=== PATIENT | female | born 1960 | race Caucasian/White ===

== ENCOUNTER 2019-11-01 13:00 | Emergency (ER) | payer OTHER ==
[2019-11-01 13:11] VITALS: BP 0/0; BMI 17.1
--- NOTE | 2019-11-01 13:32 | PDOC ---
History of Present Illness - General Chief Complaint: Respiratory Stated Complaint: COVID 19 EXPOSURE Time Seen by Provider: 11/01/19 13:09 History Source: Patient Exam Limitations: No Limitations - History of Present Illness Initial Comments: 59 yo F history spontaneous carotid dissection B/L (treated medically, follows up at [place]), aneurysms, hemithyroidectomy presents with SOB s/p COVID-19 exposure. She states she was directly in contact with someone who tested positive. She has had slight cough and chest and back pain. Was feeling some SOB earlier today, and was concerned. She states she has an appointment to go to the drive-through testing center in [place] on Monday. Past History - Past Medical History Allergies/Adverse Reactions: Allergies Allergy/AdvReac Type Severity Reaction Status Date / Time No Known Allergies Allergy Verified 11/01/19 13:03 Home Medications: Ambulatory Orders Amlodipine Besylate [Norvasc -] 5 mg PO DAILY 11/01/19 Aspirin [Aspirin EC] 81 mg PO DAILY 11/01/19 COPD: No Thyroid Disease: Yes Other medical history: Spontaneous carotid dissection B/L, treated medically - Psycho Social/Smoking Cessation Hx Smoking History: Never smoked Hx Alcohol Use: Yes (WINE WITH DINNER) Drug/Substance Use Hx: No Review of Systems - Review of Systems Able to Perform ROS?: Yes Comments:: GENERAL/CONSTITUTIONAL: No fever or chills. No weakness. HEAD, EYES, EARS, NOSE AND THROAT: No change in vision. No ear pain or discharge. No sore throat. CARDIOVASCULAR: +Chest tightness, shortness of breath. RESPIRATORY: +Cough. No wheezing, or hemoptysis. GASTROINTESTINAL: No nausea, vomiting, diarrhea or constipation. GENITOURINARY: No dysuria, frequency, or change in urination. MUSCULOSKELETAL: No joint or muscle swelling or pain. No neck or back pain. SKIN: No rash. NEUROLOGIC: No headache, vertigo, loss of consciousness, or change in strength/sensation. ENDOCRINE: No increased thirst. No abnormal weight change. HEMATOLOGIC/LYMPHATIC: No anemia, easy bleeding, or history of blood clots. ALLERGIC/IMMUNOLOGIC: No hives or skin allergy. *Physical Exam - Vital Signs Last Vital Signs Temp Pulse Resp BP Pulse Ox 0/0 L 11/01/19 13:01 - Physical Exam GENERAL: Awake, alert, and fully oriented, in no acute distress. Well-appearing. Speaking full sentences. HEAD: No signs of trauma EYES: PERRLA, EOMI, sclera anicteric, conjunctiva clear ENT: Auricles normal inspection, hearing grossly normal, nares patent, oropharynx clear without exudates. Moist mucosa NECK: Normal ROM, supple, no lymphadenopathy, JVD, or masses LUNGS: Breath sounds equal, clear to auscultation bilaterally. No wheezes, and no crackles HEART: Regular rate and rhythm, normal S1 and S2, no murmurs, rubs or gallops ABDOMEN: Soft, nontender, normoactive bowel sounds. No guarding, no rebound. No masses EXTREMITIES: Normal range of motion, no edema. No clubbing or cyanosis. No cords, erythema, or tenderness NEUROLOGICAL: Cranial nerves II through XII grossly intact. Normal speech, normal gait. Motor and sensation intact SKIN: Warm, dry, normal turgor, no rashes or lesions noted. Medical Decision Making - Medical Decision Making 11/01/19 13:33 Based on SOB, will check CXR. Likely DC home as her vitals are stable, she is ambulatory, and well-appearing. Discharge - Discharge Information Problems reviewed: Yes Clinical Impression/Diagnosis: Suspected COVID-19 virus infection Condition: Stable Disposition: HOME - Follow up/Referral Referrals: Kourtney Tay [Primary Care Provider] - - Patient Discharge Instructions - Post Discharge Activity
== END 2019-11-01 14:26 | disposition home or self-care (01) ==
LOC: SUPCPDRO 13:00 → FER 13:00
DX: R06.02 Shortness of breath (principal); Z20.828 Contact with and (suspected) exposure to other viral communicable diseases
CPT/HCPCS: 71045-TC-FY; 99283-25

== ENCOUNTER → 2023-02-14 | Day surgery (SDC) | payer OTHER | END | disposition home or self-care (01) | LOC: FMAMMOTONE 12:33 | PROVIDERS: ATTEND Internal Medicine Cardiovascular Disease | PROC: 0HBT3ZX Excision of Right Breast, Percutaneous Approach, Diagnostic (ICD-10-PCS; principal; 2023-02-14) | DX: N60.21 Fibroadenosis of right breast (principal); N64.89 Other specified disorders of breast; R92.0 Mammographic microcalcification found on diagnostic imaging of breast | CPT/HCPCS: 19081; 76098-TC-FY; 87899; 88305-TC; A4648 ==

== ENCOUNTER 2024-05-06 15:05 | Emergency (ER) | payer OTHER ==
[2024-05-06 15:19] VITALS: BMI 17.2
[2024-05-06] MEDS ORDERED: ONDANSETRON 4 MG/2 ML VIAL ONE (18:23)
[2024-05-06] MEDS ORDERED: MORPHINE SULFATE 2 MG/ML SYRINGE ONE ×2 (18:23→20:26)
[2024-05-06] MEDS: morphine CARPU-JECT 2 MG/1 ML DISP.SYRIN IVPUSH ONE ×2 (18:42→20:41)
[2024-05-06] MEDS: ONDANSETRON 4 MG/2 ML VIAL IVPUSH ONE (18:42)
[2024-05-06 18:52] LABS: BASO % 0.3 % (0-2.0); EOS % 0.4 % (0-4.5); HEMOGLOBIN 13.9 GM/dL (10.7-15.3); LYMPH % 12.8 % (8-40); MCH 31.3 pg (25.7-33.7); MCHC 33.8 g/dl (32.0-36.0); MEAN CELL VOLUME 92.6 fl (80-96); MEAN PLT VOLUME 6.8 fl (7.5-11.1); MONO % 7.6 % (3.8-10.2); NEUT % 78.9 % (42.8-82.8); PLATELET COUNT 334 10^3/uL (134-434); RBC 4.43 M/mm3 (3.60-5.2); RDW 13.4 % (11.6-15.6); WHITE BLOOD COUNT 9.1 K/mm3 (4.0-10.0)
[2024-05-06 18:56] LABS: PH,URINE 7.5 (5.0-8.0); URINE APPEARANCE CLOUDY; URINE BILIRUBIN NEGATIVE (NEGATIVE); URINE COLOR YELLOW; URINE GLUCOSE (UA) NEGATIVE (NEGATIVE); URINE KETONE NEGATIVE (NEGATIVE); URINE LEUK ESTERASE NEGATIVE (NEGATIVE); URINE NITRITE NEGATIVE (NEGATIVE); URINE PROTEIN NEGATIVE (NEGATIVE)
[2024-05-06 19:17] LABS: POTASSIUM 3.4 mmol/L (3.5-5.1)
[2024-05-06 19:19] LABS: ALBUMIN 4.4 g/dl (3.4-5.0); BLOOD UREA NITROGEN 12.7 mg/dL (7-18); CALCIUM 9.6 mg/dL (8.5-10.1)
[2024-05-06 19:22] LABS: CREATININE 0.6 mg/dL (0.55-1.3)
[2024-05-06 19:24] LABS: BILIRUBIN,TOTAL 0.8 mg/dL (0.2-1); TOT PROT 7.2 g/dl (6.4-8.2)
[2024-05-06 20:07] LABS: HIV INTERPRETATION NEGATIVE (NEGATIVE)
[2024-05-06] MEDS ORDERED: KETOROLAC TROMETHAMINE 30 MG/1 ML VIAL ONE (20:27)
[2024-05-06] MEDS: KETOROLAC TROMETHAMINE 30 MG/1 ML VIAL IVPUSH ONE (20:41)
[2024-05-06 22:40] VITALS: BP 140/94; PULSE 80; RESP 16; TEMP 98.2
== END 2024-05-06 23:48 | disposition home or self-care (01) ==
LOC: JER 15:05
PROC: 3E0333Z Introduction of Anti-inflammatory into Peripheral Vein, Percutaneous Approach (ICD-10-PCS; principal; 2024-05-06)
PROC: 3E033NZ Introduction of Analgesics, Hypnotics, Sedatives into Peripheral Vein, Percutaneous Approach (ICD-10-PCS; 2024-05-06)
PROC: 3E033NZ Introduction of Analgesics, Hypnotics, Sedatives into Peripheral Vein, Percutaneous Approach (ICD-10-PCS; 2024-05-06)
PROC: 3E033GC Introduction of Other Therapeutic Substance into Peripheral Vein, Percutaneous Approach (ICD-10-PCS; 2024-05-06)
DX: R10.9 Unspecified abdominal pain (principal); R11.0 Nausea; R19.7 Diarrhea, unspecified
CPT/HCPCS: 36415; 71275-TC; 74174-TC; 76700-TC; 80053; 81003; 85025; 86803; 87086; 87389; 99285-25; Q9967